=== PATIENT | female | born 1985 | race Caucasian/White ===

== ENCOUNTER 2020-12-27 23:20 | Emergency (ER) | payer BC ==
[~2020-12-27] VITALS: Ht 157.5 cm; Wt 68.0 kg
[2020-12-27 23:30] VITALS: BP 137/89
[2020-12-27] MEDS ORDERED: AMOX-430 PO (23:41)
--- NOTE | 2020-12-27 23:47 | NUR ---
Patient discharged to home in stable condition. Written and verbal after care instructions given. Patient verbalizes understanding of instruction.
== END 2020-12-27 23:48 | disposition home or self-care (01) ==
LOC: ER 23:23
DX: T16.1XXA Foreign body in right ear, initial encounter (principal); Z88.2 Allergy status to sulfonamides; Z88.6 Allergy status to analgesic agent; Z79.899 Other long term (current) drug therapy; W45.8XXA Other foreign body or object entering through skin, initial encounter; Y93.89 Activity, other specified; Y92.89 Other specified places as the place of occurrence of the external cause; Y99.8 Other external cause status